=== PATIENT | male | born 1955 | race Caucasian/White ===

== ENCOUNTER 2020-12-23 08:22 | Emergency (ER) | payer MEDICARE, OTHER, SELFPAY ==
[2020-12-23 08:46] VITALS: BP 157/92; PULSE 70; RESP 15; TEMP 36.3; O2SAT 97; BMI 30.7
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
[2020-12-23 08:56] VITALS: O2SAT 95
--- NOTE | 2020-12-23 08:56 | CT_ITS ---
WS: [id number] CT HEAD NONCONTRAST HISTORY: altered mental status TECHNIQUE: Contiguous axial imaging performed through the brain in 2.5 mm imaging. Bone and soft tiss ue windows. Sagittal and coronal reformats reviewed. All CT scans at [facility] use at ast one of these dose optimization techniques: automated exposure control; mA and/or kV adjustment pe r patient size (includes targeted exams where dose is matched to clinical indication); or iterative r econstruction. DLP: 857.66 mGy.cm COMPARISON: None available. No acute intracranial hemorrhage, midline shift or mass effect. Mild atrophy and mild chronic microvascular ischemic disease. No focal area of effacement. Moderate-s ized LEFT middle cranial fossa arachnoid cyst. Ventricles: Normal size with no hydrocephalus. Paranasal sinuses: As visualized are clear. Mastoid air cells: Well pneumatized. Calvarium and scalp: Skull is intact with no soft tissue edema or swelling. CT/CT head wo con* [id number] IMPRESSION: 1. No acute intracranial hemorrhage or edema. 2. Mild atrophy and mild chronic microvascular ischemic disease.
--- NOTE | 2020-12-23 08:56 | XRR_ITS ---
PROCEDURE INFORMATION: Exam: XR Chest Exam date and time: 12/23/2020 8:58 AM Age: 65 years old Clinical indication: Cough and dyspnea; Patient HX: No chest complaints per patient; Additional info: Dyspnea/cough TECHNIQUE: Imaging protocol: XR of the chest. Views: 1 view. COMPARISON: No relevant prior studies available. FINDINGS: Lungs: Unremarkable. No consolidation. Pleural spaces: Unremarkable. No pleural effusion. No pneumothorax. Heart/Mediastinum: Unremarkable. No cardiomegaly. Bones/joints: Unremarkable. XR/XR chest 1V portable [id number] IMPRESSION: No acute findings.
--- NOTE | 2020-12-23 09:52 | PC.NURSE ---
portable xray at bedside
[2020-12-23 10:00] LABS: Basophils % 0.4 %; Eosinophils # 0.1 10^3/uL (0.0-0.8); Eosinophils % 1.6 %; Hemoglobin 14.7 g/dL (11.7-16.6); Lymphocytes # 1.4 10^3/uL (0.8-4.8); Mean Corpuscular HGB Conc 33.4 g/dL (30.0-36.0); Mean Corpuscular Hemoglobin 30.9 pg (28.0-34.0); Mean Corpuscular Volume 92.4 fL (80-94); Mean Platelet Volume 9.8 fL (7.4-10.4); Monocytes # 0.5 10^3/uL (0.2-0.9); Monocytes % 7.1 %; Neutrophils # 4.76 10^3/uL (1.8-7.7); Neutrophils % 70.6 %; Nucleated Red Blood Cells % 0 %; Platelet Count 241 10^3/cmm (130-400); Red Blood Count 4.76 10^6/uL (4.1-5.3); Red Cell Distribution Width 11.8 % (12.1-15.1); White Blood Count 6.8 10^3/uL (4.0-10.0)
[2020-12-23 10:13] VITALS: BP 143/80; PULSE 53; O2SAT 96
[2020-12-23 10:13] LABS: ABG PCO2 40.1 mmHg (35-45); Alveolar-Arterial Oxygen Gradi 1.7 mmHg (5-10); Arterial Blood Gas Hematocrit 46.1 % (42-52); Base Excess ABG -0.1 mmol/L (-2.0-2.0); Blood Gas Allen Test Pos; Blood Gas Sample Type Arterial; Carboxyhemoglobin 0.7 %THgb (0.4-20.1); HCO3 ABG 24.7 mmol/L (22-26); HGB O2 Sat 96.4 % (95-100); Ionized Calcium Level - ABG 1.2 mmol/L (1.1-1.4); Methemoglobin 0.8 % (0.4-1.5); Oxygen Saturation ABG 97.9; PO2 ABG 87.4 mmHg (80.0-100.0); Potassium Level - ABG 3.7 mmol/L (3.5-5.0)
[2020-12-23 10:14] LABS: Blood Gas Operator Identificat ED; Blood Gas Sample Site Radial, left; Oxygen Device ROOM AIR
[2020-12-23 10:15] LABS: Alanine Aminotransferase 24 U/L (0-41); Alkaline Phosphatase 79 IU/L (40-130); Anion Gap 10.2 (5-19); Aspartate Amino Transferase 21 U/L (0-40); Blood Urea Nitrogen 17 mg/dL (8-23); Calcium 8.6 mg/dL (8.5-10.5); Carbon Dioxide 27 mmol/L (22-29); Chloride 104 mmol/L (98-107); Creatine Phosphokinase 107 U/L (39-308); Creatinine Clr Calc Pharmacy 98.4907; Globulin 1.8 g/dL (1.3-4.6); Glomerular Filtration Rate 84.7 mL/min (90-130); Glucose 102 mg/dL (65-115); Osmolality Calculated 286 mOsm/kg (285-295); Potassium 4.2 mmol/L (3.5-5.1); Sodium 137 mmol/L (136-145); Total Bilirubin 0.4 mg/dL (0.15-1.2); Total Protein 5.8 g/dL (6.6-8.7)
[2020-12-23 10:18] LABS: Acetaminophen < 5.0 ug/mL (10-30); Salicylate < 0.3 mg/dL (3-10)
[2020-12-23 10:44] LABS: Add Urine Microscopic? NO; Charge for UA Resulting for Rev
[2020-12-23 10:57] LABS: Amphetamines Screen Urine Negative (Negative); Barbiturates Screen Urine Negative (Negative); Benzodiazepines Screen Urine Negative (Negative); Cocaine Screen Urine Negative (Negative); Opiate Screen Urine Negative (Negative); PCP Screen Urine Negative (Negative); THC Screen Urine Negative (Negative)
[2020-12-23 11:03] LABS: Bilirubin Urine Neg (Negative); Blood Urine Neg (Negative); Glucose Urine UA Norm (Normal); Ketones Urine Negative (Negative); Leukocyte Esterase Urine Negative (Negative); Nitrate Urine Negative (Negative); Protein Urine Neg (Negative); Urine Appearance Clear (CLEAR); Urine Color Yellow (Yellow); Urobilinogen Urine Norm (Negative); pH Urine 6 (5-7)
--- NOTE | 2020-12-23 12:30 | PC.NURSE ---
pt and pt's spouse very upset that they are still in the emergency room. nurse explained to them that part of the process is getting pt completely medically cleared. spouse states we should have told her at the door that we don't accept people over 65 at our stress unit. nurse explained to pt that we do not turn people away at the door to the emergency room per policy
--- NOTE | 2020-12-23 12:52 | ECG_ITS ---
[facility] Test Date: 2020-12-23 Pat Name: Cruz Recio Department: Room: Gender: Male Reclamation Supervisor: : 1955 Requested By: Jorge Luis Frances Order Number: [id number] Katherin MD: Braeden Shah M.D. Measurements Intervals [place] Rate: 45 P: 52 GA: 145 QRS: -4 QRSD: 79 T: 51 QT: 432 QTc: 376 Interpretive Statements SINUS BRADYCARDIA No previous ECG available for comparison Electronically Signed On 12-23-2020 19:23:11 CDT by Braeden Shah M.D. [email or web address]
[2020-12-23 14:29] VITALS: BP 160/102; PULSE 50; RESP 16; O2SAT 99
[2020-12-23 14:39] VITALS: BP 160/102; PULSE 50; RESP 16; O2SAT 99
--- NOTE | 2020-12-23 15:35 | DCPLANNER ---
manager delivery was asked to schedule an outpatient test for an EEG with Dr. Sukhdev ortiz. manager delivery faxed signed order to Dr. Santizo office, will call for appointment information. manager delivery also emailed patients information to Lyric at Dr. Santizo office. Patients information will be printed and reviewed. Clinic will call patient with both appointments.
--- NOTE | 2021-01-02 09:06 | DCPLANNER ---
Patient has an EEG scheduled for Thursday, January 07, 2021 t 10:15. Patient has a follow up appointment scheduled for Tuesday, January 19, 2021 at 1:[address] Bird. Clinic has contacted patient with appointment information for both appointments.
--- NOTE | 2021-03-11 08:08 | DCPLANNER ---
Patient had a EEG scheduled for 01.07.21 - patient did attend Patient had a follow up appointment scheduled for 01.19.[address] Bird - patient did attend.
== END 2020-12-23 15:15 ==
PROVIDERS: Emergency Provider Family Medicine
DX: F32.9 Major depressive disorder, single episode, unspecified (principal); G47.10 Hypersomnia, unspecified; R41.82 Altered mental status, unspecified
CPT/HCPCS: 36415; 36600; 70450; 71045; 80051; 80053; 80306; 80307; 81003; 82330; 82550; 82805; 83735; 85025; 93005; 99285

== ENCOUNTER → 2021-01-07 09:56 | Outpatient (BNVA) | payer MEDICARE, OTHER, SELFPAY | PROVIDERS: PCP Internal Medicine Cardiovascular Disease; Referring Provider Family Medicine; Visit Provider Specialist | DX: G93.40 Encephalopathy, unspecified (principal); R29.818 Other symptoms and signs involving the nervous system | CPT/HCPCS: 95816 ==

== ENCOUNTER → 2021-01-19 12:47 | Outpatient (BNVA) | payer MEDICARE, OTHER, SELFPAY | PROVIDERS: PCP Internal Medicine Cardiovascular Disease; Referring Provider Family Medicine; Visit Provider Specialist | DX: G30.9 Alzheimer's disease, unspecified (principal); F02.80 Dementia in other diseases classified elsewhere, unspecified severity, without behavioral disturbance, psychotic disturbance, mood disturbance, and anxiety | CPT/HCPCS: 96116; 99204 ==

== ENCOUNTER → 2021-04-22 09:57 | Outpatient (BNVA) | payer MEDICARE, OTHER, SELFPAY | PROVIDERS: PCP Internal Medicine Cardiovascular Disease; Visit Provider Specialist | DX: G30.9 Alzheimer's disease, unspecified (principal); F02.80 Dementia in other diseases classified elsewhere, unspecified severity, without behavioral disturbance, psychotic disturbance, mood disturbance, and anxiety | CPT/HCPCS: 96116; 99214 ==

== ENCOUNTER → 2021-07-22 10:03 | Outpatient (BNVA) | payer MEDICARE, OTHER, SELFPAY | PROVIDERS: PCP Internal Medicine Cardiovascular Disease; Visit Provider Specialist | DX: G30.9 Alzheimer's disease, unspecified (principal); F02.80 Dementia in other diseases classified elsewhere, unspecified severity, without behavioral disturbance, psychotic disturbance, mood disturbance, and anxiety | CPT/HCPCS: 99213 ==

== ENCOUNTER → 2023-01-25 14:55 | Outpatient (BNVA) | payer MEDICARE, OTHER, SELFPAY | PROVIDERS: PCP Internal Medicine Cardiovascular Disease; Visit Provider Specialist | DX: G30.9 Alzheimer's disease, unspecified (principal); F02.82 Dementia in other diseases classified elsewhere, unspecified severity, with psychotic disturbance | CPT/HCPCS: 96116; 99214 ==

== ENCOUNTER → 2024-01-24 14:28 | Outpatient (BNVA) | payer MEDICARE, OTHER, SELFPAY | PROVIDERS: PCP Internal Medicine Cardiovascular Disease; Visit Provider Specialist | DX: R29.90 Unspecified symptoms and signs involving the nervous system (principal); G30.9 Alzheimer's disease, unspecified; F02.80 Dementia in other diseases classified elsewhere, unspecified severity, without behavioral disturbance, psychotic disturbance, mood disturbance, and anxiety | CPT/HCPCS: 96116; 99214 ==

== ENCOUNTER → 2025-01-29 10:31 | Outpatient (BNVA) | payer MEDICARE, OTHER, SELFPAY | PROVIDERS: PCP Internal Medicine Cardiovascular Disease; Visit Provider Specialist | DX: R29.90 Unspecified symptoms and signs involving the nervous system (principal); G30.9 Alzheimer's disease, unspecified; F02.80 Dementia in other diseases classified elsewhere, unspecified severity, without behavioral disturbance, psychotic disturbance, mood disturbance, and anxiety | CPT/HCPCS: 99213 ==